=== PATIENT | male | born 1940 | race Two or more races ===

== ENCOUNTER → 2018-12-21 | Outpatient (CLI) | payer MEDICARE, MEDICAID ==
--- NOTE | 2018-12-21 14:53 | RADIOLOGY REPORT (SQ) ---
EXAM DESCRIPTION: BONE SURVEY COMPLETE COMPLETED DATE/TIME: 12/21/2018 2:19 pm REASON FOR STUDY: MYELOMA R29.818 OTHER SYMPTOMS AND SIGNS INVOLVING THE NERVOUS SYSTE R10.9 UNSPE CIFIED ABDOMINAL PAIN COMPARISON: None. TECHNIQUE: Images of the axial and proximal appendicular skeleton are obtained, along with lateral s kull and frontal chest films. LIMITATIONS: None. FINDINGS: AP CHEST: No bony findings. Lungs are clear. LATERAL SKULL: No worrisome bone lesions. AP BOTH HUMERI: No worrisome bone lesions. TWO-VIEW LUMBAR SPINE: No worrisome bone lesions. TWO-VIEW THORACIC SPINE: No worrisome bone lesions. AP PELVIS: No worrisome bone lesions. AP BOTH FEMURS: No worrisome bone lesions. OTHER: No other significant finding. IMPRESSION: Negative bone survey. TECHNICAL DOCUMENTATION: JOB ID: [id number] [employer]- All Rights Reserved Reading location - IP/workstation name: [email or web address]
== END ==
LOC: RAD 13:43
PROVIDERS: ATTEND Internal Medicine Hematology & Oncology
DX: C90.00 Multiple myeloma not having achieved remission (principal); R10.9 Unspecified abdominal pain; R29.818 Other symptoms and signs involving the nervous system
CPT/HCPCS: 77075; 82565

== ENCOUNTER → 2018-12-23 | Outpatient (CLI) | payer MEDICARE, MEDICAID ==
--- NOTE | 2018-12-23 12:12 | RADIOLOGY REPORT (SQ) ---
EXAM DESCRIPTION: CT HEAD WITH COMPLETED DATE/TIME: 12/23/2018 12:00 pm REASON FOR STUDY: NEUROLOGICAL CHANGES R29.818 OTHER SYMPTOMS AND SIGNS INVOLVING THE NERVOUS SYSTE R10.9 UNSPECIFIED ABDOMINAL PAIN COMPARISON: None. TECHNIQUE: Axial images acquired through the brain with intravenous contrast. Images reviewed with b one, brain and subdural windows. Additional sagittal and coronal reconstructions were generated. Monalisa ges stored on PACS. All CT scanners at this facility use dose modulation, iterative reconstruction, and/or weight based d osing when appropriate to reduce radiation dose to as low as reasonably achievable (ALARA). [facility]: Dose Right [facility]: CareDose [facility]: Dose Right [facility]: Teradose 4D [facility]: [employer] CONTRAST TYPE AND DOSE: 78 mL of IV Omnipaque 350- low osmolar. RENAL FUNCTION: Creatinine 1.3 RADIATION DOSE: CT Rad equipment meets quality standard of care and radiation dose reduction techniq ues were employed. CTDIvol: 48.8 mGy. DLP: 1054 mGy-cm.. LIMITATIONS: None. FINDINGS: VENTRICLES: Normal size and contour. 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 No CT evidence of acute large territory ischemic change, acute intracranial hemorrhage, mass effect, or midline shift. Age-appropriate bifrontal and biparietal small vessel chronic white matte r disease, with lacunar infarct in the left basal ganglia. CEREBELLUM: No masses. No hemorrhage. Tiny chronic appearing lacunar infarcts are present in the rig ht and left inferior cerebellar hemispheres. No evidence for acute infarction. No enhancing lesions. EXTRA-AXIAL SPACES: No fluid collections. No enhancing lesions. ORBITS AND GLOBE: No intra- or extraconal masses. Normal contour of globe without masses. CALVARIUM: No fracture. PARANASAL SINUSES: No fluid or mucosal thickening. SOFT TISSUES: No mass or hematoma. OTHER: Moderate to marked calcification distal right vertebral artery at the skullbase, parasellar ca rotid arteries. 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 EVIDENCE OF ACUTE STROKE: NO. TECHNICAL DOCUMENTATION: JOB ID: [id number] Quality ID # [id number]: Final reports with documentation of one or more dose reduction techniques (e.g., Au tomated exposure control, adjustment of the mA and/or kV according to patient size, use of iterative reconstruction technique) 2010 [employer]- All Rights Reserved Reading location - IP/workstation name: [email or web address]
--- NOTE | 2018-12-23 13:48 | RADIOLOGY REPORT (SQ) ---
EXAM DESCRIPTION: CT ABD/PELVIS WITH IV ONLY COMPLETED DATE/TIME: 12/23/2018 12:00 pm REASON FOR STUDY: ABDOMINAL PAIN R29.818 OTHER SYMPTOMS AND SIGNS INVOLVING THE NERVOUS SYSTE R10.9 UNSPECIFIED ABDOMINAL PAIN COMPARISON: None. TECHNIQUE: CT scan of the abdomen and pelvis performed with intravenous and oral contrast using makenzie krista scanning technique with dynamic intravenous contrast injection. Images reviewed with lung, soft t issue, and bone windows. Reconstructed coronal and sagittal MPR images reviewed. Delayed images for e valuation of the urinary system also acquired. All images stored on PACS. All CT scanners at this facility use dose modulation, iterative reconstruction, and/or weight based d osing when appropriate to reduce radiation dose to as low as reasonably achievable (ALARA). [facility]: Dose Right [facility]: CareDose [facility]: Dose Right [facility]: Teradose 4D [facility]: [employer] CONTRAST TYPE AND DOSE: contrast/concentration: Isovue 350.00 mg/ml; Total Contrast Delivered: 78.0 ml; Total Saline Delivered: 67.0 ml RENAL FUNCTION: Creatinine 1.3 RADIATION DOSE: CT Rad equipment meets quality standard of care and radiation dose reduction techniq ues were employed. CTDIvol: 8.4 - 9.8 mGy. DLP: 1034 mGy-cm.. LIMITATIONS: Limited clinical information. From the best that I can determine, patient has history of multiple myeloma. FINDINGS: LOWER CHEST: Tiny subcentimeter scattered basilar nodules suggested. Cardiomegaly. Heavy coronary calcification. LIVER: Abnormal. Numerous right lobe liver lesions, variable enhancement and difficulty defining mar gins. Masses likely measure up to at least 6 cm or more maximally. Small amount of perihepatic flui d also noted. No duct dilatation. SPLEEN: Normal size. No focal lesions. PANCREAS: No masses. No significant calcifications. No adjacent inflammation or peripancreatic fluid collections. Pancreatic duct not dilated. GALLBLADDER: No identified stones by CT criteria. No inflammatory changes to suggest cholecystitis. ADRENAL GLANDS: No significant masses or asymmetry. RIGHT KIDNEY AND URETER: No solid masses. No significant calcification. No hydronephrosis or hydroure ter. LEFT KIDNEY AND URETER: No solid masses. No significant calcification. No hydronephrosis or hydrouret er. AORTA AND VESSELS: Atherosclerotic without aneurysm or dissection. Portal veins patent. RETROPERITONEUM: Upper retroperitoneal mild adenopathy with nodes measuring up to 1 cm in short axis. BOWEL AND PERITONEAL CAVITY: No obstruction. No visualized masses. No free fluid. No inflammatory ch anges or thickening of bowel wall. APPENDIX: Normal. PELVIS: No significant masses. Normal bladder. No free fluid. ABDOMINAL WALL: No masses. No hernias. BONES: No significant or acute findings. OTHER: No other significant finding. IMPRESSION: 1. Suspicious liver lesions. Several masses are identified with mild perihepatic fluid. The lesions are amenable to CT-guided biopsy if clinically desired. TECHNICAL DOCUMENTATION: JOB ID: [id number] Quality ID # [id number]: Final reports with documentation of one or more dose reduction techniques (e.g., Au tomated exposure control, adjustment of the mA and/or kV according to patient size, use of iterative reconstruction technique) 2010 [employer]- All Rights Reserved Reading location - IP/workstation name: [email or web address]
== END ==
LOC: RAD 12:49
PROVIDERS: ATTEND Internal Medicine Hematology & Oncology
DX: R29.818 Other symptoms and signs involving the nervous system (principal); R10.9 Unspecified abdominal pain
CPT/HCPCS: 70460; 74177; 82565